=== PATIENT | female | born 1955 | race Caucasian/White ===

== ENCOUNTER 2018-06-12 11:16 | Outpatient (REF) | payer BC, SELFPAY ==
--- NOTE | 2018-06-12 08:45 | PAPFT_PTH ---
PATIENT: GIOVANA BALLARD LOC: [facility] U#:[id number] AGE/SX: 63/F ROOM: RE06/12/[address]: Tanya Guerrero : 1955 BED: DIS: 06/12/2018 SPEC #: [id number] RECD: 06/13/18 13:13 STATUS: MADDIE REQ #: [id number] MARLENI: 06/12/18 08:[address]: Tanya Guerrero DEPT: [facility] Cytology RECD BY: Kaye Courtney ENTERED: 06/13/18 13:13 SP TYPE: PAPFT OTHR DR: Juan José Esparza Tissues: 1 - CX/ENDOCX FOR PAP SMEARS Procedures: PAP THIN PREP/[facility] Screening HPV DNA PROBE Comments: [id number]
== END 2018-06-12 11:36 ==
LOC: NCHCN 11:16
PROVIDERS: PCP Internal Medicine; Visit Provider Internal Medicine
DX: Z00.00 Encounter for general adult medical examination without abnormal findings (principal); Z12.4 Encounter for screening for malignant neoplasm of cervix; Z11.51 Encounter for screening for human papillomavirus (HPV)
CPT/HCPCS: 88142; 87624

== ENCOUNTER 2019-01-23 09:40 | Outpatient (REF) | payer BC, SELFPAY ==
[2019-01-24 11:43] LABS: Cholesterol 311 mg/dL (50-200); HDL Cholesterol 72 mg/dL (40-60); LDL CHOLESTEROL 188 mg/dL (<100); Triglyceride 138 mg/dL (30-150)
== END 2019-01-23 10:00 ==
LOC: NCHCN 09:40
PROVIDERS: PCP Internal Medicine; Visit Provider Internal Medicine
DX: E78.5 Hyperlipidemia, unspecified (principal)
CPT/HCPCS: 80061; 83721